=== PATIENT | female | born 1975 | race Caucasian/White ===

== ENCOUNTER 2025-05-12 07:37 | Emergency (ER) | payer OTHER, BC ==
[~2025-05-12] VITALS: Ht 167.6 cm; Wt 68.0 kg
[2025-05-12 07:48] VITALS: O2SAT 100
[2025-05-12] MEDS: IBUPROFEN 600MG TABLET PO ONE (08:59)
[2025-05-12] MEDS ORDERED: IBUP-1455 MT (10:00)
[2025-05-12] MEDS ORDERED: CYCL10TA21 MT (10:00)
[2025-05-12 10:23] VITALS: BP 160/96; PULSE 85; RESP 16; TEMP 36.8; O2SAT 99
== END 2025-05-12 10:25 | disposition home or self-care (01) ==
LOC: ER 07:56
DX: S20.212A Contusion of left front wall of thorax, initial encounter (principal); S20.224A Contusion of middle back wall of thorax, initial encounter; Z88.5 Allergy status to narcotic agent; V49.40XA Driver injured in collision with unspecified motor vehicles in traffic accident, initial encounter; Y93.89 Activity, other specified; Y92.410 Unspecified street and highway as the place of occurrence of the external cause; Y99.8 Other external cause status
CPT/HCPCS: 71046; 93005; 99283